=== PATIENT | female | born 1950 | race Caucasian/White ===

== ENCOUNTER 2017-05-25 03:13 | Inpatient (IN) | payer MEDICARE, OTHER ==
[2017-05-25] MEDS ORDERED: Aspirin Low Dose CHEW TAB* 81 MG PO ONE (03:58)
[2017-05-25 04:35] LABS: Albumin 3.9 g/dL (3.2-5.2); BUN/Creatinine Ratio 20.2 (8-20); Calcium 9.2 mg/dL (8.6-10.3); EGFR African American 81.4 (>60); EGFR Non-African American 63.3 (>60); Globulin 2.8 g/dL (2-4); Total Bilirubin 0.5 mg/dL (0.2-1.0); Total Protein 6.7 g/dL (6.4-8.9)
[2017-05-25 04:36] LABS: Hematocrit 44 % (35-47); Hemoglobin 14.5 g/dl (12.0-16.0); Mean Corpuscular HGB Conc 33 g/dl (31-36); Mean Corpuscular Hemoglobin 29 pg (27-31); Mean Corpuscular Volume 90 fL (80-97); Mean Platelet Volume 9 um3 (7.4-10.4); Red Blood Count 4.94 10^6/ul (4.0-5.4); Red Cell Distribution Width 16 % (10.5-15); White Blood Count 7.6 10^3/ul (3.5-10.8)
[2017-05-25 04:44] LABS: Troponin I 1.12 ng/mL (<0.04)
[2017-05-25] MEDS ORDERED: Nitroglycerin TAB 0.4 MG* 0.4 MG TAB SL PRN (05:06)
[2017-05-25] MEDS ORDERED: Heparin DRIP 25,000 UNITS(*) 25,000 UNITS/500 ML BAG IVPB SCH (05:15)
[2017-05-25] MEDS ORDERED: Atorvastatin* 80 MG TAB PO ONE (05:27)
[2017-05-25] MEDS ORDERED: Heparin VIAL(*) 5000 UNITS/ML VIAL (FIVE THOUSAND) IV SCH (06:00)
[2017-05-25] MEDS: Metoprolol Tartrate TAB* 25 MG PO SCH ×3 (07:36→20:22)
--- NOTE | 2017-05-25 08:00 | RAD ---
HISTORY: Chest pain COMPARISONS: None VIEWS: 4: Frontal dual-energy and lateral views of the chest. FINDINGS: CARDIOMEDIASTINAL SILHOUETTE: The cardiomediastinal silhouette is normal. ZEESHAN: The zeeshan are normal. PLEURA: The costophrenic angles are sharp. No pleural abnormalities are noted. LUNG PARENCHYMA: There is a focal density of the left cardiophrenic angle best seen on the frontal projection, measuring up to 4.7 cm. ABDOMEN: The upper abdomen is clear. There is no subphrenic gas. BONES AND SOFT TISSUES: No bone or soft tissue abnormalities are noted. OTHER: None. IMPRESSION: FOCAL DENSITY OF THE LEFT CARDIOPHRENIC ANGLE WHICH MAY REPRESENT A SMALL HIATAL HERNIA, THOUGH THE IMAGING APPEARANCE IS INDETERMINATE. RECOMMEND FURTHER EVALUATION WITH CONTRAST-ENHANCED CT OF THE CHEST
[2017-05-25] MEDS ORDERED: Perflutren Lipid Microsphere* 3 ML VIAL ONE (08:21)
[2017-05-25] MEDS ORDERED: Aspirin EC Low Dose* 81 MG TAB.EC PO SCH (09:00)
--- NOTE | 2017-05-25 10:10 | ECHO ---
Patient: CARLOS CAMPOS [facility] Rec#: [id number] : 1950 Date: 05/25/2017 Age: 66y Height: 162.56 cm / 64.0 in Weight: 114.76 kg / 252.9 lbs Sex: F BSA: 2.16 Room#: 452 Admit Date#: 05/25/2017 Type: Inpatient Referring: Nahomi Perdomo DO Reading: Caden Kincaid MD Towel Folder: Iwona Mosqueda RDCS CC: JESSICA MOODY Transthoracic Echocardiogram Indication: Chest pain, NSTEMI. 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 Technical Comments: The study is technically difficult. The study is technically limited due to patient body habitus. Left Ventricle: The left ventricular chamber size is normal. Moderate concentric left ventricular hypertrophy is observed. There is increased basal septal hypertrophy noted without evidence of an increased gradient across the left ventricular outflow tract. There is a focal wall motion abnormality present. There is normal left ventricular systolic function. The estimated ejection fraction is 40-45%. Mid to distal anterior, anteroseptal and apical severe hypokinesis to akinesis. Abnormal left ventricular diastolic function is observed. There is an E to A reversal in the mitral valve flow pattern suggestive of diastolic dysfunction. The mid anteroseptal, mid anterior, mid inferoseptal, apical anterior, apical lateral, and apical inferior wall segments are hypokinetic (score 2). The apical septal wall segment is akinetic (score 3). Overall wallmotion score index is 1.50 Left Atrium: The left atrium is mildly dilated. Right Ventricle: The right ventricle wall thickness is mildly increased. The right ventricular cavity size is normal. The right ventricular global systolic function is low normal. Right Atrium: The right atrial cavity size is normal. Aortic Valve: The aortic valve is trileaflet. The aortic valve leaflets are mildly thickened. There is no evidence of aortic regurgitation. There is no evidence of aortic stenosis. Mitral Valve: The mitral valve leaflets are mildly thickened. There is trace to mild mitral regurgitation. There is no evidence of mitral stenosis. Tricuspid Valve: The tricuspid valve leaflets are normal. There is trace to mild tricuspid regurgitation. The right ventricular systolic pressure is estimated at 21 mmHg. No pulmonary hypertension is noted. There is no tricuspid stenosis. Pulmonic Valve: The pulmonic valve appears normal. There is a trace pulmonic regurgitation. There is no pulmonic stenosis. Pericardium: There is no significant pericardial effusion. Aorta: There is mild dilatation of the ascending aorta. There is no dilatation of the aortic arch. There is no dilation of the aortic root. Pulmonary Artery: The main pulmonary artery is not well visualized. Venous: The inferior vena cava appears normal in size. There is a greater than 50% respiratory change in the inferior vena cava dimension. Contrast: Definity was used to optimize study. 5 mL of diluted Definity was utilized. Intravenous contrast was used to enhance endocardial border definition. Summary: There was not any prior study for comparison. Conclusions The study is technically difficult. Moderate concentric left ventricular hypertrophy is observed. There is increased basal septal hypertrophy noted without evidence of an increased gradient across the left ventricular outflow tract. The estimated ejection fraction is 40-45%. Mid to distal anterior, anteroseptal and apical severe hypokinesis to akinesis. Abnormal left ventricular diastolic function is observed. The aortic valve leaflets are mildly thickened. There is trace to mild mitral regurgitation. There is trace to mild tricuspid regurgitation. There is mild dilatation of the ascending aorta. The left atrium is mildly dilated. Measurements Name Value Normal Range RVIDd (AP) 2D 2.9 cm (0.9 - 2.6) RVDdMajor (2D) 3.2 cm (2.2 - 4.4) RVAW (2D) 0.7 cm (0.2 - 0.5) RAd ISD 4CH 4.6 cm (3.4 - 4.9) RA (A4C)W 3.2 cm (2.9 - 4.6) IVSd (2D) 1.4 cm (0.6 - 1) LVPWd (2D) 1.4 cm (0.6 - 1) LVIDd (2D) 4.2 cm (3.6 - 5.4) LVIDs (2D) 3.4 cm - LV FS (2D) 21 % (25 - 45) EF Teichholz (2D) 42 % - Aortic Annulus 1.9 cm (1.4 - 2.6) Ao root diameter (2D) 3.1 cm (2.1 - 3.5) Ascending Ao 3.5 cm (2.1 - 3.4) Aortic arch 2.4 cm (1.8 - 3.4) LA dimension (AP) 2D 4 cm (2.3 - 3.8) LAd ISD 4CH 4.9 cm (2.9 - 5.3) LA ISD 4CH W 3.5 cm (2.5 - 4.5) Name Value Normal Range LA ESV SP 4CH (A/L) 42 ml - LA ESV SP 2CH (A/L) 64 ml - LA ESV BP (A/L) 53 ml - LA ESV BP (A/L) index 24.74 ml/m2 - LA ESV SP 4CH (MOD) 39 ml - LA ESV SP 2CH (MOD) 64 ml - Name Value Normal Range MV E-wave Vmax 0.83 m/sec - MV deceleration time 219.4 msec - MV A-wave Vmax 1 m/sec - MV E:A ratio 0.81 ratio - LV septal e' Vmax 0.06 m/sec - LV lateral e' Vmax 0.1 m/sec - LV E:e' septal ratio 13.8 ratio - LV E:e' lateral ratio 8.3 ratio - Name Value Normal Range AV Vmax 1.5 m/sec - AV VTI 28.1 cm - AV peak gradient 9.07 mmHg - AV mean gradient 4.81 mmHg - LVOT Vmax 1.19 m/sec - LVOT VTI 24.45 cm - LVOT peak gradient 5.74 mmHg - LVOT mean gradient 3.34 mmHg - THOMPSON Vmax 0.93 m/sec - Name Value Normal Range TR Vmax 2.1 m/sec - TR peak gradient 18 mmHg - RAP 3 mmHg - RVSP 21 mmHg - IVC diameter 1.4 cm - Name Value Normal Range PV Vmax 0.93 m/sec - PV peak gradient 3.5 mmHg - IA end-diastolic Vmax 0.85 m/sec - Wallmotion BAS Normal BA Normal BAL Normal AMADO Normal BI Normal BIS Normal MAS Hypokinetic MA Hypokinetic MAL Normal MIL Normal WV Normal MIS Hypokinetic Akinetic AA Hypokinetic AL Hypokinetic AI Hypokinetic APEX Dyskinetic
--- NOTE | 2017-05-25 10:23 | HP ---
CC: Dr. Aguila * HISTORY AND PHYSICAL: DATE OF ADMISSION: 05/25/17 PRIMARY CARE PROVIDER: Dr. Aguila CHIEF COMPLAINT: Chest pain. HISTORY OF PRESENT ILLNESS: Ms. Chi is a 66-year-old female with a history of achalasia and osteoarthritis who presents to the emergency room with complaints of chest pain. The patient states that over the last one week, she has been having off and on chest discomfort. She states initially felt as if the pain was related to gas. She states if she sat up from a lying position or got up and walked around and she belched, the pain would go away. This past , however the patient noted that the chest discomfort was associated with tightness and heaviness in her hands as well as tingling in her hands. She states that she was having episodes every other day initially, however on , she had 2 episodes that day that lasted approximately 15 minutes each. On 05/24/17, she had an episode that lasted approximately 15 minutes in the morning and then at approximately 2345 on 05/24/17, she started to have chest discomfort that worsened beyond what she had previously experienced. She states that the pain waxed and waned in intensity for a while. She woke her up at 0130. The patient was also noted to be sweaty with a discomfort and she stated that she felt difficult to breathe, although she is not sure, she truly felt short of breath. The discomfort was relieved by nitroglycerin given to her my EMS. PAST MEDICAL HISTORY: 1. Achalasia. 2. Arthritis. PAST SURGICAL HISTORY: 1. Tonsillectomy. 2. Tubal ligation. 3. Bilateral cataract extraction. 4. Left upper tooth implant. MEDICATIONS: 1. Reynolds 3 fatty acid 1 cap p.o. daily. 2. Multivitamin 1 cap p.o. daily. 3. Calcium 600 mg p.o. daily. 4. Nexium 40 mg p.o. daily. 5. Celebrex 200 mg p.o. daily. ALLERGIES: No known drug allergies. FAMILY HISTORY: Mom at the age of 60 with cancer. Dad of emphysema. SOCIAL HISTORY: The patient is a nonsmoker. She drinks alcohol on occasion. 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 She is . She has 6 children. One from alcohol related complications. Her healthcare proxy is her , Dejon. REVIEW OF SYSTEMS: The patient denies any fevers, chills, or anorexia. She admits to chest pain as above. No edema. No cough. She has questionable shortness of breath/difficulty breathing as noted above. No nausea, vomiting, abdominal pain, constipation, diarrhea. No hematochezia, no dysuria, or hematuria. No focal weakness or sensory loss. No sudden changes in her vision. She admits to dysphagia related to her achalasia. No joint pains or muscles pains out of the ordinary. No rashes. No anxiety or depression. PHYSICAL EXAMINATION GENERAL: The patient is a well-developed, morbidly obese, middle-aged female, sitting up in the stretcher, in no acute distress. VITAL SIGNS: Blood pressure 158/78, pulse 92, respirations 16, temp 98.3, O2 sat 97% on room air. HEENT: Pupils are equal, they are round, there is evidence of prior cataract extraction. Extraocular muscles intact. Oropharynx is clear. Oral mucosa is moist. There is no submandibular, cervical or supraclavicular adenopathy. Thyroid is not enlarged. No thyroid nodules noted. PULMONARY: Lungs are clear to auscultation bilaterally. CARDIAC: Normal S1, S2. Regular rate and rhythm. I do not appreciate any murmurs. There is trace bilateral lower extremity edema. ABDOMEN: Bowel sounds are present. Abdomen is obese, soft, nontender, nondistended. MUSCULOSKELETAL: There is no cyanosis or clubbing of the digits. There is full active range of motion in all 4 extremities. SKIN: Warm and dry. There are no rashes. NEURO: Cranial nerves II through XII are grossly intact. Sensation is intact to light touch throughout. Strength is 5/5 and symmetric in both upper and lower extremities bilaterally. PSYCH: The patient is alert. She is oriented x3. Affect appears appropriate. DIAGNOSTIC STUDIES/LAB DATA: Sodium 136, potassium 4.0, chloride 102, CO2 26, BUN 18, creatinine 0.89, glucose 148, lactic acid 1.2, calcium 9.2, bilirubin 0.5, AST 28, ALT 28, alk phos 50. CPK 82, troponin 1.12. Albumin 3.9. WBC 7.6 , hemoglobin 14.5, hematocrit 44, platelets 237. EKG reveals normal sinus rhythm. ST segments in the anterior leads appear to be minimally elevated which is different from her EKG in 2011, where the segments are clearly flat. Chest x-ray to my review reveals clear lungs bilaterally. ASSESSMENT AND PLAN: Ms. Chi is a 66-year-old female with a history of obesity and achalasia who presents to the emergency room with complaints of intermittent chest pain over the last 1 week with a more significant episode starting at 2345 on 05/24/17 lasting close to 2 to 3 hours now with elevated troponin. 1. NSTEMI while the patient's EKG shows slight ST elevation in the anterior leads. I do not believe it is diagnostic. I will however go ahead and get a repeat EKG right now. A follow up troponin will be obtained at 0700. The patient will also have lipid profile obtained. She will be n.p.o. The patient took two full strength aspirin at approximately 2 a.m. at home. She will be placed on heparin drip. Her heart rate is mildly elevated in the 90s. Therefore, I will go ahead and initiate metoprolol tartrate 12.5 mg p.o. twice daily. Lipitor 80 mg p.o. q.h.s. will be initiated as well. A cardiology consultation will be requested. I have asked that the patient contact nursing if she has any return of her chest discomfort. 2. Hypertension. The patient's blood pressure is firygr-[id number] elevated. Based on the readings in the emergency room, I am going to be initiating metoprolol tartrate. We will monitor her blood pressure. 3. Achalasia. The patient's is going to bring in her home Nexium as she states other PPIs do not work for her. This will be continued when it is brought in. 4. DVT prophylaxis: According to the Adult Thrombosis Prophylaxis Risk Factor Assessment Guide, the patient has a total risk factor score of 4 making her high risk. She is going to be on a heparin drip and this will act as her DVT prophylaxis. 5. Code status is full. Again the patient indicates that her is her healthcare proxy. TIME SPENT: 60 minutes spent admitting this patient. [id number]/[facility] #: [id number] MTDSuzie
[2017-05-25] MEDS ORDERED: NS 0.9% 1000 ML* 1,000 ML IV SCH ×2 (11:15→13:30)
--- NOTE | 2017-05-25 11:29 | CONS ---
CC: Dr. Wooten CARDIOLOGY CONSULTATION: DATE OF CONSULT: 05/25/17 REASON FOR EVALUATION: Non-ST elevation TN. PATIENT OF: Dr. Wooten. HISTORY OF PRESENT ILLNESS: This is a very pleasant 66-year-old woman who was admitted with chest pain and found to have EKG changes and elevated troponin consistent with non-ST elevation TN. She has a history of obesity and achalasia. She occasionally gets chest pressure, which usually resolves with sitting up and swallowing some water. She said that about a week ago, Monday, she started experiencing some intermittent episodes of chest pressure associated with some arm numbness and shortness of breath. These would last for 5 to 10 minutes and resolve spontaneously. They were not positional. These would happen on and off, not particularly with exertion. She said yesterday she had one in the morning while waiting for her to car to be serviced that lasted 10 or 15 minutes and resolved. Last night about 11:30 p.m., she was watching television and she started getting her symptoms, but they persisted over two and a half hours. The symptoms would wax and wane with pressure in her chest, radiating to her shoulders and numbness in her arm, associated with some shortness of breath. She had a headache as well and took 2 aspirin. By about 2 :30 a.m., her decided to call customer service security officer, who came and gave her 2 nitroglycerin with improvement in her pain, and by the time she got to the emergency room, it was almost gone. Her EKG from 3:29 a.m. revealed sinus rhythm with poor R-wave progression, possible anterior septal TN and ST-elevation of about a mm with T-wave inversions in V1 through V4; biphasic T-waves with T-wave inversions in V1 through V4, and some nonspecific ST depressions in 1 and AVL, also possible old inferior TN. The previous study was from January 2011. At that time, she had normal R-waves. She had normal EKG, perhaps some early repolarization in V1 and V2, but normal STs elsewhere. She had a repeat EKG at 5:47 a.m. that revealed similar EKG to the one from earlier in the day. She currently denies any chest pain. No orthopnea. No fever, chills or sweats. No syncope or near syncope. She does fall asleep easily when reading or watching TV. She denies any previous cardiac history. PAST MEDICAL HISTORY: She states she has been told of high blood pressure in the past, but has not been treated for it. She has a history of elevated cholesterol recently. She denies diabetes, tobacco use. She does have obesity and achalasia. PAST SURGICAL HISTORY: Includes cataract surgery in 2015 and 2016. She had dental implant in the past. MEDICATIONS: Her medications include Nexium and Celebrex. As an inpatient , she is on IV heparin, received one dose of lipitor 80 mg, and metoprolol. ALLERGIES: She denies any drug allergies. FAMILY HISTORY: Includes a mother who had cancer. Father, who at 84 of unknown causes. She has a sister who is estranged, but has Grave's disease. SOCIAL HISTORY: She is . She has 6 children. 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 REVIEW OF SYSTEMS: Review of systems x12 was negative except as above. PHYSICAL EXAM: She is a well-developed, well-nourished obese female, in no apparent distress. Weight 252 pounds, blood pressure is 152/83, pulse of 82, O2 sats 92%, and temperature 98.7. No significant JVD. Carotids 2+ without bruits. No cervical adenopathy or thyromegaly. Extraocular muscles intact. Atraumatic, normocephalic. Cardiac Exam: S1 and S2. No clear murmurs, gallops , or rubs. Chest was clear. No CVAT. Abdomen: Bowel sounds present, obese, nontender. No hepatosplenomegaly, although exam is somewhat limited due to obesity. Femoral pulses are intact without bruits. Distal pulses intact. No edema. Motor strength 5/5 bilaterally. Deep tendon reflexes 2/4. Alert and oriented x3. DIAGNOSTIC STUDIES/LAB DATA: CBC appeared to be unremarkable with a hematocrit of 44. Electrolytes include a potassium of 4, BUN of 18, creatinine of 0.89, glucose mildly elevated at 148, troponin was 1.12 from 4 a.m. and 2.67 from approximately 9 a.m. Cholesterol 236, triglycerides 66, LDL 160, HDL of 63. Chest x-ray revealed focal density in the left costophrenic angle, may represent a small hiatal hernia; consider further imaging with CT. Her echocardiogram from today revealed what appeared to be mid to distal anteroseptal and apical hypokinesis with EF of 40% to 45%, [id number] MR, feklx-ks-wvte TR, mild dilatation of the ascending aorta. IMPRESSION: My impression is that Ms. Chi has a non-ST elevation myocardial infarction and appears to have wall motion abnormality suggestive of mid LAD lesion and reduced LV function. Currently, she is pain-free. Given the high probability of coronary artery disease and acute coronary syndrome, I did recommend further evaluation with cardiac catheterization. I have discussed the case with the patient and Dr. Ha and he finally agrees to proceed to cath. PLAN/RECOMMENDATIONS: For the time being, I have recommended the followin. Would continue metoprolol as you are doing. 2. We will continue nitroglycerin. 3. Continue heparin and aspirin. 4. Would add Plavix to her regimen. 5. Would add a statin to her regimen. 6. consider out patient evaluation for sleep apnea. I did recommend along with long-term weight reduction and cholesterol lowering and a diet low in cholesterol. Further recommendations will depend on clinical course. [id number]/[facility] #: [id number] [facility] HOSPITALSuzie
[2017-05-25] MEDS ORDERED: Midazolam* 1 MG/ML 5 ML VIAL (5 MG) ONE (12:03)
[2017-05-25] MEDS ORDERED: VERAPAMIL 2.5 MG/ML 4 ML VIAL ONE (12:03)
[2017-05-25] MEDS ORDERED: fentaNYL* 50 MCG/ML 2 ML VIAL (100 MCG VIAL) ONE (12:03)
[2017-05-25] MEDS ORDERED: Heparin 2 UNITS/ML IVPREMIX* 2,000 ML IV ONE (12:03)
[2017-05-25] MEDS ORDERED: Heparin(*) 1000 UNIT/ML 10 ML VIAL CATH LAB IV ONE (12:03)
[2017-05-25] MEDS ORDERED: nitroGLYCERIN DRIP* 250 ML ONE (12:03)
[2017-05-25] MEDS ORDERED: Iohexol 350 (CONTRAST) 200 ML MDV IV ONE (12:04)
[2017-05-25] MEDS ORDERED: Lidocaine 1% INJ* 10 MG/ML 30 ML SDV ONE (12:04)
[2017-05-25] MEDS ORDERED: Ticagrelor* 90 MG TAB PO ONE (12:49)
[2017-05-25] MEDS: Captopril TAB* 12.5 MG PO SCH ×2 (14:55→20:22)
--- NOTE | 2017-05-25 15:00 | PN ---
Subjective Date of Service: 05/25/17 Interval History: Ms. Chi is a 66 yo female with a PMH of achalasia and OA who reports intermittent CP over 1 week. On 05/23, the patient noted that the pain became more heavy and was associated with tingling in her hands. The pain progressed, with a significant chest pain around 2345 on with associated diaphoresis and SOB. Patient was found to have elevated trop and concern for NSTEMI. Patient is now s/p cardiac cath. She denies CP, SOB. She is restless, wanting to know "when can I get up?" She reports "feeling fine." No acute concerns voiced by patient at this time. She understands her procedure and postoperative instructions. Telemetry: SR 80s Family History: Unchanged from Admission Social History: Unchanged from Admission Past Medical History: Unchanged from Admission Objective Active Medications: Aspirin (Aspirin Ec Low Dose*) 81 mg PO DAILY [facility] Atorvastatin Calcium (Lipitor*) 80 mg PO 1700 [facility] Captopril (Capoten Tab*) 6.25 mg PO TID [facility] Last Admin: 05/25/17 14:55 Dose: 6.25 mg Sodium Chloride (Ns 0.9% 1000 Ml*) 1,000 mls @ 100 mls/hr IV .per rate [facility] Sodium Chloride (Ns 0.9% 1000 Ml*) 1,000 mls @ 100 mls/hr IV .per rate [facility] Stop: 05/25/17 19:00 Metoprolol Tartrate (Lopressor Tab*) 12.5 mg PO Q12HR [facility] Last Admin: 05/25/17 09:56 Dose: Not Given Nitroglycerin (Nitroglycerin Tab 0.4 Mg*) 0.4 mg SL Q5M PRN PRN Reason: ANGINA Ticagrelor (Brilinta*) 90 mg PO BID [facility] Vital Signs 05/25/17 05/25/17 05/25/17 05:29 05:52 06:13 Temperature 98.3 F Pulse Rate 87 87 Respiratory 18 16 18 Rate Blood Pressure 143/84 126/78 (mmHg) O2 Sat by Pulse 96 Oximetry 05/25/17 05/25/17 05/25/17 09:52 13:30 13:36 Temperature 98.7 F 97.4 F Pulse Rate 82 74 Respiratory 16 Rate Blood Pressure 152/83 (mmHg) O2 Sat by Pulse 92 94 Oximetry 05/25/17 05/25/17 05/25/17 13:38 13:40 13:45 Temperature 97.4 F Pulse Rate 76 74 83 Respiratory 16 Rate Blood Pressure 139/88 139/88 138/98 (mmHg) O2 Sat by Pulse 94 95 94 Oximetry 05/25/17 05/25/17 05/25/17 13:50 14:00 14:05 Temperature 98 F 98.1 F Pulse Rate 70 Respiratory Rate Blood Pressure 124/88 (mmHg) O2 Sat by Pulse 97 Oximetry 05/25/17 05/25/17 05/25/17 14:16 14:31 14:45 Temperature Pulse Rate 83 83 88 Respiratory 11 24 18 Rate Blood Pressure 131/98 150/102 130/116 (mmHg) O2 Sat by Pulse 96 97 96 Oximetry Oxygen Devices in Use Now: None Appearance: Older female, lying in bed, pleasant, NAD Eyes: No Scleral Icterus Ears/Nose/Mouth/Throat: Clear Oropharnyx, Mucous Membranes Moist Neck: NL Appearance and Movements; NL JVP Respiratory: Symmetrical Chest Expansion and Respiratory Effort, Clear to Auscultation Cardiovascular: NL Sounds; No Murmurs; No JVD, RRR Abdominal: NL Sounds; No Tenderness; No Distention Extremities: No Clubbing, Cyanosis, - - trace pretibial edema, right hand distally nvi Skin: No Rash or Ulcers Neurological: Alert and Oriented x 3, NL Muscle Strength and Tone Lines/Tubes/Other Access: Clean, Dry and Intact Peripheral IV Nutrition: Taking PO's Result Diagrams: 05/25/17 04:09 05/25/17 04:09 Assess/Plan/Problems-Billing Assessment: Ms. Chi is a 66 yo with a PMH of achalasia and OA who presented to the emergency room with complaints of intermittent chest pain over the last 1 week with a more significant episode starting at 2345 on 05/24/17 lasting close to 2 to 3 hours, with elevated troponin and diagnostically concerning for NSTEMI. - Patient Problems (1) NSTEMI (non-ST elevated myocardial infarction) Code(s): I21.4 - NON-ST ELEVATION (NSTEMI) MYOCARDIAL INFARCTION Comment: Patient s/p left heart cath with right radial entry Found to have mid-LAD stenosis and is s/p PCI Appreciate cardiology input Continue metoprolol, atorvastatin 80 mg, ticagrelor, ASA, captopril. Continue to trend troponins to peak, last noted at 2.67 (2) HTN (hypertension) Code(s): I10 - ESSENTIAL (PRIMARY) HYPERTENSION Comment: Not previously on medication Currently normotensive Continue captopril, metoprolol (3) Achalasia Code(s): K22.0 - ACHALASIA OF CARDIA Comment: Patient has only had success with Nexium May use home supply when family provides. (4) Osteoarthritis Code(s): M19.90 - UNSPECIFIED OSTEOARTHRITIS, UNSPECIFIED SITE Comment: Continue home calcium supplement. PRN acetaminophen available Home celecoxib held. (5) DVT prophylaxis Comment: Heparin gtt Status and Disposition: Inpatient admission. Anticipate dc in 2 days.
[2017-05-25] MEDS ORDERED: Acetaminophen TAB* 325 MG PO PRN (16:55)
[2017-05-25] MEDS: Atorvastatin* 80 MG TAB PO SCH (17:12)
[2017-05-25] MEDS ORDERED: Omeprazole CAP* 20 MG PO SCH (18:00)
[2017-05-25] MEDS: ESOMEPRAZOLE 40 MG PO SCH (18:51)
[2017-05-25] MEDS: Ticagrelor* 90 MG TAB PO SCH (20:23)
--- NOTE | 2017-05-26 00:44 | CATH ---
CC: Dr. Kincaid; Dr. Aguila * STENT REPORT: DATE OF PROCEDURE: 05/25/17 - ROOM #ICU-03 CERTIFIED PROFESSIONAL CONTROLLER: Dr. Kincaid. PRIMARY CARE PHYSICIAN: Dr. Aguila. PROCEDURES: Right radial artery access, bilateral selective coronary cineangiography, left heart catheterization, stent placement LAD 2.75 x 20 Synergy drug-eluting stent. HISTORY: A 66-year-old morbidly obese woman with non-ST elevation infarct. Echo shows LVEF of 40% with an anteroapical wall motion abnormality. PROCEDURE ACCESS: Right radial artery sheath 6F Slender. MEDICATIONS: 1. Subcu lidocaine. 2. IV Versed. 3. IV fentanyl. 4. Heparin 3000 units. 5. Verapamil 3 mg. 6. Nitroglycerin 300 mcg IA. 7. Heparin 4000 units IV. 8. Brilinta 180 mg p.o. loading dose. DIAGNOSTIC CATHETER: 5-F TIG4, also used for left heart pressures. Guiding catheter 6-F VL 3.5, wire 14 BMW used to deploy a 2.75 x 20 Synergy drug - eluting stent mid LAD, jailing only the most distal part of the ostium of the diagonal. Stent deployed at 11 atmospheres 11 seconds, postdilated with a 2.75 x 20 noncompliant balloon 18 atmospheres 30 seconds. HEMODYNAMICS: Initial BP 141/76, LV 117/16-18, no aortic valve gradient on pullback. ANGIOGRAPHY: There was mild resistance to passage of the J-wire at the right antecubital fossa, imaging showed no loop or stenosis. This was easily traversed with a woolly wire. Left Main: The left main is normal in size and length, there is no stenosis. LAD: The LAD is moderate, extends past the apex, has a large first diagonal after which there is a discrete 90% stenosis, which is followed by a 40% to 50% stenosis, which was covered with the same stent. Circumflex: The circumflex is not dominant, is moderate with a small-to- moderate first marginal, and then supplies a large second marginal, which supplies the obtuse margin. The circumflex has no significant stenosis. RCA: The RCA is dominant, moderate, has scattered diffuse luminal irregularity without significant stenosis in the mid portion. The PDA is relatively small, is followed by 3 small posterolaterals. LV gram not performed due to reduced creatinine clearance. Post LAD stent deployment and post dilatation, there is no residual stenosis, there is no compromise of the diagonal. Flow is SONDRA-3. CONCLUSION: 1. Single-vessel disease LAD with high-grade mid LAD stenosis in the setting of a non-ST elevation infarct without active chest pain. Excellent angiographic result with drug-eluting stent placement followed by high pressure post dilatation. 2. No aortic valve stenosis, elevated LVEDP post volume and contrast. 3. Successful right radial artery access. [id number]/[facility] #: [id number] [facility] HOSPITALSuzie
[2017-05-26 05:43] LABS: Troponin I 7.43 ng/mL (<0.04)
[2017-05-26] MEDS ORDERED: Omeprazole CAP* 20 MG PO SCH (07:30)
[2017-05-26] MEDS: Metoprolol Tartrate TAB* 25 MG PO SCH (08:04)
[2017-05-26] MEDS: Aspirin EC Low Dose* 81 MG TAB.EC PO SCH (08:04)
[2017-05-26] MEDS: Calcium Carbonate TAB* 1250 MG (CALCIUM 500 MG) PO SCH (08:05)
[2017-05-26] MEDS: Captopril TAB* 12.5 MG PO SCH ×3 (08:05→21:29)
[2017-05-26] MEDS: Vitamin THERAPEUTIC TAB PO SCH (08:05)
[2017-05-26] MEDS: Ticagrelor* 90 MG TAB PO SCH ×2 (08:05→21:29)
[2017-05-26] MEDS: ESOMEPRAZOLE 40 MG PO SCH (08:05)
[2017-05-26 10:14] LABS: Calcium 8.7 mg/dL (8.6-10.3); EGFR African American 71.1 (>60); EGFR Non-African American 55.3 (>60); Potassium 3.9 mmol/L (3.5-5.0)
[2017-05-26] MEDS: Metoprolol Tartrate TAB* 50 mg PO SCH ×2 (11:01→21:29)
--- NOTE | 2017-05-26 11:49 | PN ---
Subjective Date of Service: 05/26/17 Interval History: This is a 66 yo female with achalasia and OA who presented with c/o CP. She was diagnosed with NSTEMI and taken to cath yesterday where she received a stent to her LAD with Dr Ha. She denies c/o CP overnight. No SOB, abd pain, n/v. Objective Active Medications: Acetaminophen (Tylenol Tab*) 650 mg PO Q4H PRN PRN Reason: FEVER/PAIN Aspirin (Aspirin Ec Low Dose*) 81 mg PO DAILY [facility] Last Admin: 05/26/17 08:04 Dose: 81 mg Atorvastatin Calcium (Lipitor*) 80 mg PO 1700 [facility] Last Admin: 05/25/17 17:12 Dose: 80 mg Calcium Carbonate (Calcium Carbonate Tab*) 1,250 mg PO DAILY [facility] Last Admin: 05/26/17 08:05 Dose: 1,250 mg Captopril (Capoten Tab*) 12.5 mg PO TID [facility] Stop: 05/26/17 23:59 Esomeprazole Magnesium (Nexium(Nf)) 40 mg PO DAILY [facility] PRN Reason: Protocol Last Admin: 05/26/17 08:05 Dose: 40 mg Lisinopril (Prinivil Tab*) 10 mg PO DAILY [facility] Metoprolol Tartrate (Lopressor Tab*) 50 mg PO BID [facility] Last Admin: 05/26/17 11:01 Dose: 50 mg Multivitamins (Theragran Tab*) 1 tab PO DAILY [facility] Last Admin: 05/26/17 08:05 Dose: 1 tab Nitroglycerin (Nitroglycerin Tab 0.4 Mg*) 0.4 mg SL Q5M PRN PRN Reason: ANGINA Ticagrelor (Brilinta*) 90 mg PO BID [facility] Last Admin: 05/26/17 08:05 Dose: 90 mg Vital Signs: Temp Pulse Resp BP Pulse Ox 98.5 F 85 14 123/80 94 05/26/17 07:22 05/26/17 10:01 05/26/17 11:00 05/26/17 10:39 05/26/17 10:01 Oxygen Devices in Use Now: None Appearance: Well appearing in NAD. Accompanied by her . Respiratory: Symmetrical Chest Expansion and Respiratory Effort, Clear to Auscultation Cardiovascular: NL Sounds; No Murmurs; No JVD, RRR Abdominal: NL Sounds; No Tenderness; No Distention Extremities: No Edema Skin: No Rash or Ulcers Neurological: Alert and Oriented x 3 Result Diagrams: 05/25/17 04:09 05/26/17 05:15 Microbiology and Other Data: Microbiology 05/25/17 15:25 Nasal Screen MRSA (PCR)(ORESTES) - Final Nasal Mrsa Negative Diagnostic Imaging: Echo - EF 40-45%, distal anterior septal/apical hypokinesis Assess/Plan/Problems-Billing Assessment: Ms. Chi is a 66 yo with a PMH of achalasia and OA who presented to the emergency room with complaints of chest pain with elevated troponin and diagnostically concerning for NSTEMI now s/p PCI - Patient Problems (1) NSTEMI (non-ST elevated myocardial infarction) Comment: Patient s/p left heart cath with right radial entry Found to have mid-LAD stenosis and is s/p PCI Appreciate cardiology input Continue metoprolol, atorvastatin 80 mg, ticagrelor, ASA, captopril. Troponin peaked at ~13, now trending down without continued c/o CP (2) HTN (hypertension) Comment: Not previously on medication Currently normotensive Continue captopril, metoprolol (3) Achalasia Comment: Cont home Nexium (4) Osteoarthritis Comment: PRN acetaminophen available Home celecoxib held. (5) Full code status (6) DVT prophylaxis Comment: SQ Lovenox Status and Disposition: Inpatient admission. Transition from ICU to telemetry floor. Likely dc home tomorrow
[2017-05-26] MEDS ORDERED: Enoxaparin(*) 40 MG/0.4 ML SYR SUBCUT SCH (12:00)
[2017-05-26] MEDS: Atorvastatin* 80 MG TAB PO SCH (15:55)
[2017-05-27 07:49] VITALS: BP 129/75
[2017-05-27] MEDS: Ticagrelor* 90 MG TAB PO SCH (07:54)
[2017-05-27] MEDS: Calcium Carbonate TAB* 1250 MG (CALCIUM 500 MG) PO SCH (07:54)
[2017-05-27] MEDS: Vitamin THERAPEUTIC TAB PO SCH (07:55)
[2017-05-27] MEDS: Metoprolol Tartrate TAB* 50 mg PO SCH (07:55)
[2017-05-27] MEDS: Aspirin EC Low Dose* 81 MG TAB.EC PO SCH (07:55)
[2017-05-27 08:09] LABS: BUN/Creatinine Ratio 12.5 (8-20); Calcium 8.9 mg/dL (8.6-10.3); EGFR African American 74.6 (>60); Potassium 3.9 mmol/L (3.5-5.0)
[2017-05-27] MEDS: ESOMEPRAZOLE 40 MG PO SCH (08:25)
[2017-05-27] MEDS ORDERED: Lisinopril TAB* 10 MG PO SCH (09:00)
--- NOTE | 2017-05-28 04:19 | DS ---
CC: Dr. Aguila; Dr. Ha; Dr. Kincaid * DISCHARGE SUMMARY: DATE OF ADMISSION: 05/25/17 DATE OF DISCHARGE: 05/27/17 PRIMARY CARE PROVIDER: Dr. Aguila. SHEET WRITER: Dr. Ha. CONSULTING REGIONAL HR MANAGER: Dr. Kincaid. DISCHARGING PROVIDER: AGUSTIN Alarcon. SUPERVISING PHYSICIAN: Dr. Yuriy Dailey * (DICTATED BY AGUSTIN ALARCON) PRIMARY DISCHARGE DIAGNOSES: 1. Non-ST elevation myocardial infarction, status post percutaneous coronary intervention to the left anterior descending artery. 2. Hypertension - this is a new diagnosis and the patient has been discharged on PENNIE inhibitor and beta arnel. SECONDARY DISCHARGE DIAGNOSES: 1. Achalasia. 2. Osteoarthritis. DISCHARGE MEDICATIONS: 1. Aspirin 81 mg p.o. daily. 2. Atorvastatin 80 mg p.o. daily. 3. Calcium 600 mg p.o. daily. 4. Nexium 40 mg p.o. daily. 5. Lisinopril 10 mg p.o. daily. 6. Metoprolol tartrate 50 mg p.o. twice daily. 7. Brilinta 90 mg p.o. twice daily. 8. Fish oil 1 capsule p.o. daily. Medication changes: 1. Start aspirin. 2. Start Brilinta. 3. Start atorvastatin. 4. Start lisinopril. 5. Start metoprolol. HOSPITAL IMAGIN. Chest x-ray showed small a focal density at the left costophrenic angle, which may represent a small hiatal hernia though further evaluation could be completed with CT of the chest. 2. Transthoracic echocardiogram shows an EF of 40% to 45% with [id number] anteroseptal and apical severe hypokinesis to akinesis and some abnormal left ventricular diastolic dysfunction without significant valvular disease. 3. Cardiac catheterization. The patient shows normal left main, LAD demonstrated 90% stenosis, which received drug-eluting stent; circumflex, there is no significant stenosis; RCA shows no significant stenosis. HOSPITAL COURSE: This is a 66-year-old female with history of achalasia and osteoarthritis, who presented to the emergency department with complaints of chest pain. The patient had been having some more mild and intermittent chest pain for at least a week or two leading up to her hospitalization. Her symptoms became progressively worse and then became more acute, which prompted her to seek care in the emergency department. Her initial troponin was elevated at 1.12 with an EKG that showed some nonspecific T-wave changes in the anterior and lateral leads, but no significant ST elevation. The patient was subsequently admitted for non-ST elevation OK and started on heparin drip. The patient was evaluated by burning supervisor, Dr. Kincaid, who requested catheterization by interventionalist, Dr. Ha. The patient underwent cardiac catheterization on 05/25/17, which demonstrated 90% LAD lesion, which was successfully stented. The patient remained asymptomatic without significant ectopy following catheterization. The patient was noted to be moderately hypertensive earlier in her hospital stay and was subsequently started on an PENNIE inhibitor and beta arnel. Echocardiogram also demonstrated somewhat reduced ejection fraction at 40% to 45% with hypokinesis along the LAD distribution. DISPOSITION AND FOLLOWUP PLAN: The patient is being discharged to home where she lives with her . Multiple medication changes have been made as listed above. These were reviewed with the patient. The patient requires followup with her primary care provider within 1 week of discharge. Followup has been made with Dr. Ha for a site check for her catheterization access point. The patient will require further followup with burning supervisor, Dr. Kincaid , for continued medical management of her coronary disease. AGUSTIN ALARCON [id number]/[facility] #: [id number] [facility]TD[facility]
== END 2017-05-27 10:07 | disposition home or self-care (01) | DRG 247 ==
LOC: ED 03:13 → MEDTELE 05:06 → ICU 14:01 → MEDTELE 05-26 12:53
PROVIDERS: ADMIT Hospitalist; ATTEND Physician Assistant
PROC: 3E033PZ Introduction of Platelet Inhibitor into Peripheral Vein, Percutaneous Approach (ICD-10-PCS; 2017-05-25)
PROC: B2111ZZ Fluoroscopy of Multiple Coronary Arteries using Low Osmolar Contrast (ICD-10-PCS; 2017-05-25)
PROC: 4A023N7 Measurement of Cardiac Sampling and Pressure, Left Heart, Percutaneous Approach (ICD-10-PCS; 2017-05-25)
PROC: 027034Z Dilation of Coronary Artery, One Artery with Drug-eluting Intraluminal Device, Percutaneous Approach (ICD-10-PCS; principal; 2017-05-25 11:45)
DX: I21.4 Non-ST elevation (NSTEMI) myocardial infarction (principal); K22.0 Achalasia of cardia; Z68.41 Body mass index [BMI] 40.0-44.9, adult; E66.01 Morbid (severe) obesity due to excess calories; I08.1 Rheumatic disorders of both mitral and tricuspid valves; M19.90 Unspecified osteoarthritis, unspecified site; I25.10 Atherosclerotic heart disease of native coronary artery without angina pectoris; K44.9 Diaphragmatic hernia without obstruction or gangrene; I77.819 Aortic ectasia, unspecified site; I10 Essential (primary) hypertension; E78.5 Hyperlipidemia, unspecified; Z98.51 Tubal ligation status; Z98.42 Cataract extraction status, left eye; Z98.41 Cataract extraction status, right eye; Z83.6 Family history of other diseases of the respiratory system; Z80.9 Family history of malignant neoplasm, unspecified; Z79.82 Long term (current) use of aspirin; Z79.02 Long term (current) use of antithrombotics/antiplatelets
CPT/HCPCS: 36415; 71020; 80048; 80053; 80061; 82550; 82553; 83036; 83605; 84484; 85025; 85730; 87641; 93005; 93306; 93458; 99156; 99157; A9270-GY; C1725; C1769; C1876; C1887; C8929; C9601-LD; J1644; J1650; J2001; J2250; J3010